=== PATIENT | male | born 1970 | race Caucasian/White ===

== ENCOUNTER → 2020-07-11 08:37 | Outpatient (CLI) | payer OTHER, SELFPAY ==
--- NOTE | ~2020-07-11 | XR_ITS ---
EXAMINATION: XR chest 2V DATE: 07/11/2020 09:12 INDICATION: Tobacco use. Mid upper back mass. TECHNIQUE: frontal and lateral views of the chest were obtained. COMPARISON: None FINDINGS: The lungs are clear with no focal airspace opacities, pulmonary edema, pleural effusion or pneumothor ax. The cardiomediastinal silhouette is normal. Mild thoracic spondylosis. IMPRESSION: 1. No acute cardiopulmonary disease. Reviewed, dictated and finalized at location B.
--- NOTE | ~2020-07-11 | XR_ITS ---
EXAMINATION:XR_CERV2-3V_CR DATE: 07/11/2020 09:12 INDICATION: Neck mass. TECHNIQUE: AP and lateral views of the cervical spine are provided. COMPARISON: None FINDINGS: Mild reversal of the normal cervical lordosis. Odontoid is intact. Normal atlantoaxial interval. Hiral tebral body heights are normal. Moderate disc height loss at C5-C6 with severe bilateral uncovertebra l osteoarthritis and posterior endplate osteophytes resulting in mild central canal stenosis. Remaini ng disc heights are normal. Mild facet osteoarthritis at a few levels. Prevertebral soft tissues are normal. There is a focal bulge to the skin surface posteriorly at the base of the neck with lenticul ar region of architectural distortion to the reticular pattern of fibrous tissue in the low density f at suggesting approximately 8 x 4 cm subcutaneous lipoma posterior to the C6-T1 spinous processes. IMPRESSION: 1. Suggestion of an 8 x 4 cm fat attenuation mass posterior to the cervicothoracic junction suspiciou s for lipoma. 2. Moderate spondylosis at C5-C6. Reviewed, dictated and finalized at location B. IMPRESSION: 1. Suggestion of an 8 x 4 cm fat attenuation mass posterior to the cervicothora cic junction suspicious for lipoma. 2. Moderate spondylosis at C5-C6.
== END ==
PROVIDERS: PCP Emergency Medicine; Visit Provider Emergency Medicine
DX: R22.1 Localized swelling, mass and lump, neck (principal); M47.892 Other spondylosis, cervical region
CPT/HCPCS: 71046; 72040

== ENCOUNTER 2020-10-16 10:05 | Outpatient (CLI) | payer OTHER, SELFPAY ==
--- NOTE | 2020-10-16 11:30 | NEURO_ITS ---
Impression: # Complains of numbness of hands. # Severe right Carpal Tunnel Syndrome. # Moderate left Carpal Tunnel Syndrome. # Mild right ulnar neuropathy across the elbow. # Abnormal needle/EMG exam. Nerve Conduction Studies Anti Sensory Summary Table Stim Site NR Peak (ms) P-T Amp (?V) Site1 Site2 Delta-P (ms) Dist (cm) Luis (m/s) Left Median Anti Sensory (2-3nd Digit) Wrist 8.2 23.3 Wrist 2-3nd Digit 8.2 14.0 17 Wrist 7.0 5.9 Wrist 2-3nd Digit 8.2 14.0 17 Right Median Anti Sensory (2-3nd Digit) Wrist 7.7 30.6 Wrist 2-3nd Digit 7.7 14.0 18 Wrist 7.8 29.6 Wrist 2-3nd Digit 7.7 14.0 18 Left Radial Anti Sensory (Base 1st Digit) Wrist 2.1 9.8 Wrist Base 1st Digit 2.1 0.0 Right Radial Anti Sensory (Base 1st Digit) Wrist 2.5 19.5 Wrist Base 1st Digit 2.5 0.0 Left Ulnar Anti Sensory (5th Digit) Wrist 2.5 29.8 Wrist 5th Digit 2.5 14.0 56 Right Ulnar Anti Sensory (5th Digit) Wrist 2.6 21.0 Wrist 5th Digit 2.6 14.0 54 Motor Summary Table Stim Site NR Onset (ms) O-P Amp (mV) Site1 Site2 Delta-0 (ms) Dist (cm) Luis (m/s) Left Median Motor (Abd Poll Brev) Wrist 4.7 0.8 Elbow Wrist 4.8 28.0 58 Elbow 9.5 1.7 Right Median Motor (Abd Poll Brev) Wrist 7.2 4.4 Elbow Wrist 5.4 30.0 56 Elbow 12.6 3.9 Left Ulnar Motor (Abd Dig Minimi) Wrist 2.7 6.9 A Elbow Wrist 5.0 30.0 60 A Elbow 7.7 5.9 Right Ulnar Motor (Abd Dig Minimi) Wrist 2.3 6.0 A Elbow Wrist 5.7 29.0 51 A Elbow 8.0 4.0 B Elbow Wrist 3.7 20.0 54 B Elbow 6.0 2.9 F Wave Studies NR F-Lat (ms) L-R F-Lat (ms) Left Median (Mrkrs) (Abd Poll Brev) 32.34 2.69 Right Median (Mrkrs) (Abd Poll Brev) 35.03 2.69 Left Ulnar (Mrkrs) (Abd Dig Min) 30.98 1.73 Right Ulnar (Mrkrs) (Abd Dig Min) 29.25 1.73 EMG Side Muscle Nerve Root Ins Act Fibs Amp Dur Recrt Comment Right 1stDorInt Ulnar C8-T1 Nml Nml Nml Nml Nml Right Ext Indicis Radial (Post Int) C7-8 Nml Nml Nml Nml Nml Right Ext Digitorum Radial (Post Int) C7-8 Nml Nml Nml Nml Nml Right BrachioRad Radial C5-6 Nml Nml Nml Nml Nml Right PronatorTeres Median C6-7 Nml Nml Nml Nml Nml Right Abd Poll Brev Median C8-T1 Nml Nml Decr >12ms Reduced Left 1stDorInt Ulnar C8-T1 Nml Nml Nml Nml Nml Left Ext Indicis Radial (Post Int) C7-8 Nml Nml Nml Nml Nml Left Ext Digitorum Radial (Post Int) C7-8 Nml Nml Nml Nml Nml Left BrachioRad Radial C5-6 Nml Nml Nml Nml Nml Left PronatorTeres Median C6-7 Nml Nml Nml Nml Nml Left Abd Poll Brev Median C8-T1 Nml Nml Nml Nml Nml MTDD
== END 2020-10-16 10:06 | disposition home or self-care (01) ==
LOC: ANHNEURO 10:07
PROVIDERS: PCP Emergency Medicine; Visit Provider Psychiatry & Neurology Neurology
DX: R20.2 Paresthesia of skin (principal); G56.03 Carpal tunnel syndrome, bilateral upper limbs
CPT/HCPCS: 95886; 95911

== ENCOUNTER 2020-11-15 08:06 | Outpatient (CLI) | payer OTHER, SELFPAY ==
--- NOTE | ~2020-11-15 | US_ITS ---
EXAMINATION: US right upper quadrant EXAM DATE: 11/15/2020 08:35 INDICATION: Hepatitis C. TECHNIQUE: Multiple grayscale and Doppler images of the abdomen right upper quadrant were obtained (nawaf y a technologist who performed the scan) and subsequently reviewed. There is no prior study for anant pichardo. FINDINGS: The pancreatic head and body are normal in appearance. The pancreatic tail is not visualized. There is echogenic liver parenchyma, hepatic steatosis. There are no focal liver lesions identified. Th ere is no evidence of intrahepatic biliary duct dilation. Portal venous flow was seen in the hepatop edal, normal direction and has normal Doppler waveform. No right-sided hydronephrosis. Common bile duct measures 4 mm, which is normal. The gallbladder wall is normal in thickness, with ex pected amount of distention. No sonographic evidence of pericholecystic fluid. There is no cholelit hiases. Technologist performing exam reports patient did not demonstrate sonographic White's sign. Please note that this sign is less reliable in patients who have received pain medication. IMPRESSION: 1. Unremarkable abdominal ultrasound exam. Reviewed, dictated and finalized at location A. R ASSEMBLER
[2020-11-15 08:54] LABS: Hematocrit 50.4 % (42.0-52.0); Mean Corpuscular HGB Conc 33.7 g/dl (32-36); Mean Corpuscular Hemoglobin 29.7 pg (26-34); Mean Platelet Volume 10.7 fl (7.4-10.4); Platelet Count Result 269 k/mm3 (150-375); Red Blood Count 5.73 M/mm3 (4.6-6.20); Red Cell Distribution Width 13.1 % (11.5-14.5); White Blood Count 13.6 K/mm3 (4.5-10.0)
[2020-11-15 09:04] LABS: Alanine Aminotransferase 372 U/L (4-50); Albumin Level 4.3 g/dL (3.5-5.1); Alkaline Phosphatase 62 U/L (38-126); Anion Gap 6 mmol/L (8-16); Aspartate Amino Transferase 135 U/L (17-59); Bilirubin,Total 0.9 mg/dL (0.2-1.3); Blood Urea Nitrogen 19 mg/dL (9-20); Carbon Dioxide 29 mmol/L (22-30); Chloride 104 mmol/L (98-107); Estimated Glomerular Filt Rate > 60; Glucose 136 mg/dL (75-110); Potassium 4.4 mmol/L (3.4-5.0); Sodium 139 mmol/L (137-145)
[2020-11-15 09:09] LABS: Prothrombin Time 13.8 Seconds (11.1-14.7)
[2020-11-15 09:49] LABS: Hepatitis B Surface Antigen Negative (Negative)
[2020-11-15 09:55] LABS: HAV RESULT Negative (Negative); Hepatitis B Core IgM Result Negative (Negative)
[2020-11-15 10:07] LABS: Hepatitis B Surface Anti Res Positive; Hepatitis C Virus Antibody Reactive (Negative)
[2020-11-17 12:27] LABS: Hepatitis C RNA, Quant PCR 195000 IU/mL
== END 2020-11-15 08:07 | disposition home or self-care (01) ==
PROVIDERS: PCP Emergency Medicine; Visit Provider Internal Medicine Gastroenterology
DX: B19.20 Unspecified viral hepatitis C without hepatic coma (principal)
CPT/HCPCS: 36415; 76705; 80053; 85027; 85610; 85730; 86705; 86706; 86709; 86803; 87340; 87522

== ENCOUNTER 2020-12-17 08:07 | Outpatient (CLI) | payer OTHER, SELFPAY ==
[2020-12-17 11:38] LABS: Hepatitis C Virus Antibody Reactive (Negative)
[2020-12-19 04:48] LABS: Amphetamines negative; Barbiturates negative; Benzodiazepines negative; Cocaine Metabolites negative; Marijuana Metabolites negative; PCP negative
[2020-12-19 17:37] LABS: Hepatitis C RNA, Quant PCR 260000 IU/mL
[2020-12-19 19:35] LABS: Hepatitis C Viral RNA PCR 247000 IU/mL
[2020-12-21 08:24] LABS: HCV Genotype, LiPA 1a
== END 2020-12-17 08:08 | disposition home or self-care (01) ==
PROVIDERS: PCP Emergency Medicine; Visit Provider Internal Medicine Gastroenterology
DX: R14.3 Flatulence (principal); R10.11 Right upper quadrant pain
CPT/HCPCS: 36415; 80307; 86003; 86803; 87522

== ENCOUNTER 2020-12-18 08:17 | Outpatient (CLI) | payer OTHER, SELFPAY | END 2020-12-18 08:18 | disposition home or self-care (01) | LOC: ANHLAB 08:19 | PROVIDERS: PCP Emergency Medicine; Visit Provider Internal Medicine Gastroenterology | DX: B19.20 Unspecified viral hepatitis C without hepatic coma (principal); R14.3 Flatulence; R10.11 Right upper quadrant pain | CPT/HCPCS: 99199; 36415; 82172; 82247; 82465; 82947; 82977; 83010; 83883; 84450; 84460; 84478 ==

== ENCOUNTER 2021-12-30 00:51 | Day surgery (SDC) | payer OTHER, SELFPAY ==
--- NOTE | 2021-12-21 14:59 | PC.NURSE ---
Report to the Outpatient Waiting Room, entrance under the green pavilion located off [facility], at time _1130 on date __12/30/21 . OR Time: __1329 . - You and your visitor will be asked a series of questions to screen for COVID 19 for your protection. - A mask is required within the hospital. Preoperative COVID Testing Requirements: No COVID Test needed if: (proof is required; if not received patient will have Rapid Test prior to entry) - Patient has received COVID Vaccine at least 14 days prior to procedure date or - Patient has positive COVID test result within last 90 days of surgery date. COVID Test needed if above criteria is not met If not COVID vaccinated a COVID test must be conducted within 72 hours of surgery and patient is asked to isolate self from time of testing until procedure. You will go to the [employer] [facility] for your COVID testing. The [employer] [facility] is located at the corner of [address] [facility]. You will only be called if COVID results are positive and your surgeon may reschedule your elective surgery date. Patients may have clear liquids (water, carbonated beverages, clear teas, apple juice) until 3 hours prior to surgery with a maximum of 20 ounces. - No food from midnight until time of surgery - Infants may have breast milk until 4 hours before surgery, formula 6 hours prior to surgery. - Children will be allowed to drink immediately following surgery. If applicable, please bring a bottle or sippy cup to assist with drinking. Juice, water, soda, and popsicles are readily available. For infants on formula, please bring formula the day of surgery. Pacifiers are allowed. Take the following medications with a SIP of water the morning of surgery: NONE Medications to discontinue per physician NONE Date to take last dose Please no make-up, nail nepali, hairspray, perfume, deodorant, or body powder the day of surgery. No jewelry (including any body piercings) or valuables the day of surgery, leave them at home. Please take a shower or bath the night before, or the morning of, surgery with an antibacterial soap. Wear comfortable, loose fitting clothing. Children are encouraged to wear pajamas. - Jewelry must be removed prior to entering the operating room. Rings and piercings that are not removed may be cut off. - The hospital will not accept responsibility for valuables. - Please leave all valuables, including medications, at home the day of surgery. If you are going home after surgery, a licensed local owner operator truck driver must drive you home. - NO public transportation without another adult. - We recommend that an adult stay with you for 24 hours following discharge. - We also recommend that you do not drive, make important decision, drink alcoholic beverages, or take any drugs that were not prescribed by your health care provider for at least 24 hours after your discharge time. For Pediatric surgeries, we recommend two adults accompany the child home (only one inside the building at this time). One visitor will be allowed to accompany the patient into the hospital. Patients visitor will be instructed to remain with patient at all times or leave the building. We will allow the visitor to come back to the postoperative area when patient is ready. Follow any additional instructions given to you from your surgeon. Telephone instructions given to _PATIENT and asked if any additional questions and then verbalized understanding. Patient advised to call surgeon office or pre surgery nurse liaison [phone] if any additional questions.
[2021-12-21 15:10] VITALS: BMI 32.4
--- NOTE | 2021-12-29 14:28 | WPDANESEPPF ---
Anes - Initial Pre Proc Eval Procedure: Operation Date: 12/30/21 12:00 Proposed Procedures p Excisional Biopsy of Posterior Neck Mass - Rosalba Hunter MD Date/Time: 12/29/21 14:28 Surgeon: Rosalba Hunter MD Pre Op Diagnosis: neck mass 10x7cm Patient Data Age: 51 Gender: M Height: 1.77 m Weight: 101.15 kg Allergies Allergy/AdvReac Type Severity Reaction Status Date / Time No Known Allergies Allergy Verified 12/30/21 09:48 Home Medications Medication Instructions Recorded Confirmed Type ibuprofen 200 mg capsule 200 mg PO Q6H PRN 12/15/21 12/21/21 History Patient hx anesthesia problems: none Family hx anesthesia problems: none Results Review: All pre-operative results and documents have been reviewed as part of the pre-operative evaluation. FORMERLY [facility] Past Medical History Medical History (Updated 12/29/21 @ 14:28 by Duran Frost MD) Arthritis History of hepatitis Peripheral neuropathy Surgical History Surgical History (Updated 12/15/21 @ 13:45 by Tunde Bradshaw MA) H/O plastic surgery Toes Family History Family History (Updated 12/15/21 @ 13:43 by Tunde Bradshaw MA) Mother Parkinsons disease Bipolar 1 disorder, mixed Social History Social History (Updated 12/15/21 @ 13:44 by Tunde Bradshaw MA) Smoking packs per day: 1.5 Smoking cigarettes per day: 30.0 Years smoked: 28 Smoking pack-years: 42.00 Smoking status: Former smoker Tobacco type: cigarettes Smokeless tobacco user: chewing tobacco Alcohol intake: unknown Alcohol use details: STATES SOBER FOR 12 YEARS NOW Substance use: former Substance use type: crack/cocaine Last use: 2009 Living arrangements: with family Additional occupation/education comments: Construction Gender identity (if verbalized by the patient): Male Spiritual care concerns: No Anes - Eval Final PreProcedure Day of Procedure 12/29/21 14:28 Heart: regular rate and rhythm Lungs: clear to auscultation Airway: Mallampati scale class III Neurological: alert and oriented Last oral intake: >/= 8 hours ASA classification: II Emergent: no Anesthetic plan: proceed Anesthesia type and monitoring: general GIVS and standard monitoring Results Review: All pre-operative results and documents have been reviewed as part of the pre-operative evaluation. Informed Consent: The patient's anesthetic plan and its attendant risks and benefits were discussed with the patient/family/POA. Questions were solicited and answers provided to the satisfaction of the patient/family/POA.
[2021-12-30] MEDS: LACTATED RINGERS 1,000 ML 30 ML IV CONT ×2 (09:58→12:15)
[2021-12-30 10:00] VITALS: BP 133/80; PULSE 77; RESP 16; TEMP 36.7; O2SAT 97
--- NOTE | 2021-12-30 10:52 | WPDHPUPDATE1 ---
History and Physical Update Update Date/Time: 12/30/21 10:52 History and Physical has been reviewed, including an updated exam of the patient. There are NO changes in the patient's condition. Risks, benefits, and alternatives have been discussed and questions answered. Patient agrees to proceed with procedure.
[2021-12-30] MEDS: ceFAZolin 2 GM/D5W 50 ML 2 GM/50 ML BAG IVPB (12:22)
[2021-12-30 13:10] VITALS: BP 104/71; PULSE 74; RESP 16; TEMP 36.1; O2SAT 95
--- NOTE | 2021-12-30 13:10 | W.PM.PROC2 ---
Procedure Note - Detailed Date of Procedure 12/30/21 Pre-op Diagnosis neck mass 8x4 cm Post-op Diagnosis Same Procedure Performed Excisional biopsy posterior neck mass measuring 8 x 4 cm Surgeon Rosalba Hunter MD Anesthesia MAC and Local Indications 51 y/o M c enlarging post neck mass Findings non-encapsulated mass posterior neck measuring 8x4 cm extending to muscle but not invading Description of Procedure The patient was taken to the operating room and placed in the lateral position. After adequate induction of MAC anesthesia the patient was prepped and draped in the normal sterile fashion. A time-out was then done to verify the patient's identity, as well as the procedure being performed. I began by localizing the area and around this mass in the posterior neck. I then made an incision in the dermis overlying the mass. This was carried through the dermal layer into the subcutaneous tissue. Upon getting into the subcutaneous tissue, a large, hard mass was encountered. This looked to be a lipoma, however it was not encapsulated. This mass extended posteriorly to the muscle, but did not invade into the muscle. Using very careful dissection, I was able to excise the mass in full. The measurement of the mass was approximately 8 x 4 cm. It will be sent to pathology for further review. I then gained hemostasis with the Bovie cautery. The cavity was copiously irrigated and no other pathology was noted. I then closed the subcutaneous tissue with 3-0 Vicryl suture. The skin was closed with 4-0 Monocryl subcuticular suture. Dermabond was then placed on the wound. The patient tolerated the procedure well and will be transported to the recovery room in stable condition. Estimated Blood Loss 10 Drains No Packing No Pathology Yes Complications No immediate complications Condition Stable Disposition PACU
[2021-12-30 13:40] VITALS: BP 115/82; PULSE 74; RESP 14
== END 2021-12-30 14:00 | disposition home or self-care (01) ==
PROVIDERS: PCP Emergency Medicine; Visit Provider Surgery
PROC: (CPT 21552; principal; 2021-12-30 12:00)
DX: D17.0 Benign lipomatous neoplasm of skin and subcutaneous tissue of head, face and neck (principal); Z87.891 Personal history of nicotine dependence; E66.9 Obesity, unspecified; Z68.31 Body mass index [BMI] 31.0-31.9, adult
CPT/HCPCS: 21552; 88304; J0690; J2250; J2405; J2704; J3010; J7120

== ENCOUNTER 2024-03-04 13:06 | Emergency (ER) | payer OTHER, SELFPAY ==
--- NOTE | ~2024-03-04 | XR_ITS ---
Clinical Indication: Cough PA and lateral views of the chest: Comparison: 07/11/2020 Findings: Hazy right upper lobe consolidation is compatible with pneumonia. Left lung clear. Cardiom ediastinal silhouette is within normal limits. Bones and soft tissues are unremarkable. Impression: Right upper lobe pneumonia. Reviewed, dictated and finalized at location . Impression: Right upper lobe pneumonia.
[2024-03-04 13:24] VITALS: BP 134/77; PULSE 95; RESP 18; TEMP 36.4; O2SAT 98
--- NOTE | 2024-03-04 14:56 | ED.GENADULT ---
HPI - General Adult General Chief complaint: Upper Respiratory Infection Stated complaint: Congestion,Headache Source: patient Mode of arrival: ambulatory Limitations: no limitations History of Present Illness HPI narrative: Patient presents for evaluation of sick symptoms for last four days. He reports sinus congestion, productive cough green sputum and some difficulty breathing. He believes he had a fever but did not actually check his temperature. He had one episode of diarrhea and also reports a frontal headache which he attributes to coughing. No nausea or vomiting. He does use an electronic cigarette. He has tried mucinex with some improvement with his symptoms thereafter. No recent sick contacts to his knowledge. Related Data Allergies Allergy/AdvReac Type Severity Reaction Status Date / Time No Known Allergies Allergy Verified 03/04/24 13:24 Review of Systems Review of Systems: CONSTITUTIONAL: Denies fever, chills, or sweats. EYES: Denies visual changes, redness, or discharge. ENT: Reports sinus congestion and clear rhinorrhea. Denies sore throat CARDIOVASCULAR: Denies chest pain, palpitations, or edema. RESPIRATORY:Reports cough and difficulty breathing GASTROINTESTINAL: Reports one episode of diarrhea. Denies abdominal pain, nausea, or vomiting GENITOURINARY: Denies dysuria or hematuria. SKIN: Denies rash or itching. MUSCULOSKELETAL: Denies back pain, joint pain, or myalgia. NEUROLOGIC: Reports headache. Denies numbness, dizziness, or weakness. PSYCHIATRIC: Denies anxiety or depression. [facility]LY [facility] Past Medical History Medical History Arthritis History of hepatitis Peripheral neuropathy Surgical History Surgical History H/O excision of mass posterior neck mass 12/30/21 H/O plastic surgery Toes Family History Family History Mother Parkinsons disease Bipolar 1 disorder, mixed Social History Social History (Updated 03/04/24 @ 15:03 by RICARDO Mcgrath, JENNY) Smoking packs per day: 1.5 Smoking cigarettes per day: 30.0 Years smoked: 28 Smoking pack-years: 42.00 Smoking status: Current every day smoker Tobacco type: e-cigarettes/vaping Smokeless tobacco user: chewing tobacco Alcohol intake: unknown Alcohol use details: STATES SOBER FOR 12 YEARS NOW Substance use: former Substance use type: crack/cocaine Last use: 2009 Living arrangements: with family Occupation/Education: occupation Additional occupation/education comments: Construction Gender identity (if verbalized by the patient): Male Spiritual care concerns: No Exam Narrative: GENERAL: Appears ill but nontoxic. Well-nourished, and in no acute distress. HEAD: Normocephalic, atraumatic. EYES: PERRLA and EOMI. ENT: Nares clear, no rhinorrhea or epistaxis. Mucous membranes moist. Oropharynx without tonsillar hypertrophy exudate or other lesions. Bilateral TMs pearly molina nonbulging NECK: Supple. No adenopathy or masses. No carotid bruits or JVD CHEST: Cough present on exam. Clear to auscultation. No respiratory distress. No wheezes rales or rhonchi HEART: Regular rate and rhythm. No murmur heard. Normal peripheral pulses. ABDOMEN: Soft, nontender, nondistended, normal active bowel sounds. EXTREMITIES: Normal range of motion. No edema. SKIN: Warm, dry, no rash. NEURO: No focal deficits. Alert and oriented x3. PSYCH: Normal mood and affect. Course Course Emergency Course: This is a 53-year-old male who presented for evaluation of sick symptoms. COVID and influenza were negative. Chest x-ray showed pneumonia. Will treat with Augmentin and azithromycin. Mucinex DM for cough. Advised on smoking cessation. Follow up with primary provider. Go to the ER for worsening symptoms. Pt in agreement with plan of
== END 2024-03-04 15:00 | disposition home or self-care (01) ==
PROVIDERS: Emergency Provider Nurse Practitioner; PCP Emergency Medicine
DX: J18.1 Lobar pneumonia, unspecified organism (principal); Z20.822 Contact with and (suspected) exposure to COVID-19; F17.210 Nicotine dependence, cigarettes, uncomplicated; F17.220 Nicotine dependence, chewing tobacco, uncomplicated; F17.290 Nicotine dependence, other tobacco product, uncomplicated; M19.90 Unspecified osteoarthritis, unspecified site; G62.9 Polyneuropathy, unspecified
CPT/HCPCS: 71046; 87426; 87804; 99213; G0463